=== PATIENT | male | born 1985 | race Caucasian/White ===

== ENCOUNTER → 2020-10-24 | Outpatient (CLI) | payer OTHER ==
--- NOTE | 2020-10-24 14:35 | REP ---
INDICATION: DYSPNEA, UNSPECIFIED. COMPARISON: None. FINDINGS: The superior mediastinal structures are midline. The cardiac silhouette is unremarkable in size, shape, and position. The diaphragmatic surfaces of the lungs are regular, and the costophrenic angles are clear. The pulmonary loo are clear. The imaged osseous structures are intact. There is been previous left clavicle ORIF. IMPRESSION: There is no acute cardiopulmonary disease. <Electronically signed by Karri Rico > 10/24/20 [id number]
== END ==
LOC: M RAD 14:13
PROVIDERS: ATTEND Nurse Practitioner Family
DX: R06.00 Dyspnea, unspecified (principal)

== ENCOUNTER → 2020-11-08 | Outpatient (CLI) | payer OTHER ==
[~2020-11-08] MED LIST: METHACHOLINE KIT (J7674) INH ONE
--- NOTE | 2020-11-08 15:17 | PFTRPT ---
Height: 70.00 Inches Weight: 170.00 Lbs BSA: 1.95 Diagnosis: R05 DATE: 11/08/2020 ORDERED BY: Angela Stephens QUALITY: Study of excellent technical quality. PROCEDURE: Under protocol, methacholine was administered. Even after a maximum dose of 25 mg or 188.875 CDUs, no provocation was ever achieved. IMPRESSION: Negative methacholine challenge study. MTDD
== END ==
LOC: M CARPUL 07:59 → EDUNIT# 08:00
PROVIDERS: ATTEND Nurse Practitioner Family
DX: R05 Cough (principal)
CPT/HCPCS: 94070; J7674

== ENCOUNTER 2025-01-27 21:02 | Emergency (ER) | payer OTHER ==
[~2025-01-27] VITALS: Ht 177.8 cm; Wt 83.3 kg
[2025-01-27 23:03] VITALS: BP 135/76; TEMP 98.4; O2SAT 98
== END 2025-01-28 03:09 | disposition left against medical advice (07) ==
LOC: M ED 21:02
DX: Z53.21 Procedure and treatment not carried out due to patient leaving prior to being seen by health care provider (principal)